=== PATIENT | male | born 1940 ===

== ENCOUNTER 2021-12-21 15:29 | Outpatient (RCR) | payer MEDICARE | END 2022-01-12 | LOC: PT 15:29 | PROVIDERS: ATTEND Specialist | DX: M17.0 Bilateral primary osteoarthritis of knee (principal); M62.81 Muscle weakness (generalized); R26.2 Difficulty in walking, not elsewhere classified; M25.562 Pain in left knee; M25.561 Pain in right knee; M25.662 Stiffness of left knee, not elsewhere classified ==